=== PATIENT | male | born 1990 | race Caucasian/White ===

== ENCOUNTER 2017-04-23 18:20 | Emergency (ER) | payer SELFPAY ==
--- NOTE | 2017-04-23 18:29 | Emergency Department Report ---
Chief Complaint: Fever Stated Complaint: FEVER/BODY PAIN Time Seen by Provider: 04/23/17 18:26 - HPI History of Present Illness: PT c/o body aches since Saturday night. PT states he checked his temperature on Saturday due to chills and he had fever. PT c/o sore throat x 2-3 hours - ROS Review of Systems: + fever + sore throat - Exam Physical Exam: pt is febrile in triage pt looks non toxic no exudate noted on tonsils MSE screening note: Focused history and physical exam performed. Due to findings the following was ordered: labs, medication ED Disposition for MSE Condition: Stable
[2017-04-23] MEDS ORDERED: TYLENOL PO ONE (18:30)
[2017-04-23 19:05] LABS: Alanine Aminotransferase 14 units/L (7-56); Albumin 4.7 g/dL (3.9-5); Albumin/Globulin Ratio 1.5 %; Alkaline Phosphatase 47 units/L (35-129); Anion Gap 26 mmol/L; BUN/Creatinine Ratio 9.09; Blood Urea Nitrogen 10 mg/dL (9-20); Calcium 9.3 mg/dL (8.4-10.2); Carbon Dioxide 20 mmol/L (22-30); Chloride 95.8 mmol/L (98-107); Glucose 100 mg/dL (75-100); Potassium 3.9 mmol/L (3.6-5.0); Sodium 138 mmol/L (137-145); Total Protein 7.9 g/dL (6.3-8.2)
[2017-04-23 19:15] LABS: Red Blood Count 4.86 M/mm3 (3.65-5.03); White Blood Count 3.9 K/mm3 (4.5-11.0)
[2017-04-23 19:16] LABS: Hematocrit 46.2 % (35.5-45.6); Hemoglobin 15.6 gm/dl (11.8-15.2); Mean Corpuscular HGB Conc 34 % (32-34); Mean Corpuscular Hemoglobin 32 pg (28-32); Mean Corpuscular Volume 95 fl (84-94); Mean Platelet Volume 8.9 fl (6-12); Platelet Count 138 K/mm3 (140-440); Red Cell Distribution Width 13.6 % (13.2-15.2)
[2017-04-23 19:45] LABS: Bilirubin,Urine NEG (Negative); Blood,Urine NEG (Negative); Ketones,Urine NEG (Negative); Leukocyte Esterase,Urine NEG (Negative); Mucus,Urine FEW /HPF; Nitrite,Urine NEG (Negative)
[2017-04-23] MEDS ORDERED: MOTRIN PO ONE (21:31)
--- NOTE | 2017-04-23 21:38 | Emergency Department Report ---
ED Fever HPI - General Chief Complaint: Fever Stated Complaint: FEVER/BODY PAIN Time Seen by Provider: 04/23/17 18:26 - History of Present Illness Initial Comments: 26-year-old male past medical history none presents with complaint of approximately 4 days of body aches, fever, sore throat. Patient denies cough and any rash denies any recent travel. States one of his children may have been sick within the last week. Patient is speaking in full sentences denies any dysuria denies any abdominal pain denies any chest pain. States that he had been taking some Tylenol with minimal relief of his fever. Dates that he noticed a sore throat today but is slightly worse with swallowing solids. Patient has no audible stridor or wheezing or any signs of respiratory distress. Timing/Duration: other (4 days) Fever Severity/Quality: greater than 100.5 F Fever Therapy OWNER/PHOTOGRAPHER: Tylenol Associated Symptoms: muscle aches, sore throat ED Review of Systems ROS: Stated complaint: FEVER/BODY PAIN Other details as noted in HPI Constitutional: fever, malaise. denies: chills Eyes: denies: eye pain, eye discharge, vision change ENT: throat pain. denies: ear pain Respiratory: denies: cough, shortness of breath, wheezing Cardiovascular: denies: chest pain, palpitations Endocrine: no symptoms reported Gastrointestinal: denies: abdominal pain, nausea, diarrhea Genitourinary: denies: urgency, dysuria Musculoskeletal: denies: back pain, joint swelling, arthralgia Skin: denies: rash, lesions Neurological: denies: headache, weakness, paresthesias Psychiatric: denies: anxiety, depression Hematological/Lymphatic: denies: easy bleeding, easy bruising ED Past Medical Hx - Past Medical History Previous Medical History?: No - Surgical History Past Surgical History?: No - Social History Smoking Status: Former Smoker Substance Use Type: Alcohol - Medications Home Medications: Home Medications Medication Instructions Recorded Confirmed Last Taken Type Amoxicillin/K Clav Tab [Augmentin 1 tab PO Q12HR #14 tab 04/23/17 Unknown Rx 875 mg] Benzocaine/Menthol [Cepacol Sore 1 each MM Q4H PRN #1 box 04/23/17 Unknown Rx Throat Lozenge] Ibuprofen [Motrin] 800 mg PO Q8HR PRN #30 tablet 04/23/17 Unknown Rx ED Physical Exam - General Limitations: No Limitations General appearance: alert, in no apparent distress - Head Head exam: Present: atraumatic, normocephalic - Eye Eye exam: Present: normal appearance, PERRL, EOMI - ENT ENT exam: Present: mucous membranes moist - Expanded ENT Exam Expanded Mouth exam: Present: normal external inspection Teeth exam: Present: normal inspection Throat exam: Positive: other (some uvular inflammation, uvula midline, no peritonsillar abscess, no significant exudates) - Neck Neck exam: Present: normal inspection, full ROM, lymphadenopathy (mild anterior adenopathy, cervical) - Respiratory Respiratory exam: Present: normal lung sounds bilaterally. Absent: respiratory distress - Cardiovascular Cardiovascular Exam: Present: regular rate, normal rhythm. Absent: systolic murmur, diastolic murmur, rubs, gallop - GI/Abdominal GI/Abdominal exam: Present: soft, normal bowel sounds - Rectal Rectal exam: Present: deferred - Extremities Exam Extremities exam: Present: normal inspection - Back Exam Back exam: Present: normal inspection - Neurological Exam Neurological exam: Present: alert, oriented X3 - Psychiatric Psychiatric exam: Present: normal affect, normal mood - Skin Skin exam: Present: warm, dry, intact, normal color. Absent: rash ED Course Vital Signs 04/23/17 04/23/17 18:27 21:37 Temperature 101.7 F H Pulse Rate 109 H Respiratory 16 18 Rate Blood Pressure 135/82 O2 Sat by Pulse 99 Oximetry ED Medical Decision Making - Lab Data Result diagrams: 04/23/17 18:37 04/23/17 18:37 - Medical Decision Making A/P: Uvulitis, strep throat infection 1-Augmentin 875 twice a day, Motrin 800 when necessary, throat lozenges 2-follow-up with primary care 3-I advised patient to return to the ED if his fevers or chills worse and is has difficulty swallowing liquids or if he has persistent nausea and vomiting Critical care attestation.: If time is entered above; I have spent that time in minutes in the direct care of this critically ill patient, excluding procedure time. ED Disposition Clinical Impression: Uvulitis, Strep throat Disposition: DC-01 TO HOME OR SELFCARE Is pt being admited?: No Does the pt Need Aspirin: No Condition: Stable Instructions: Strep Throat (ED) Prescriptions: Amoxicillin/K Clav Tab [Augmentin 875 mg] 1 tab PO Q12HR #14 tab Benzocaine/Menthol [Cepacol Sore Throat Lozenge] 1 each MM Q4H PRN #1 box PRN Reason: Sore Throat Ibuprofen [Motrin] 800 mg PO Q8HR PRN #30 tablet PRN Reason: Sore Throat Referrals: [facility] [Outside] - 3-5 Days [facility] [Outside] - 3-5 Days Forms: Accompanied Note, Work/School Release Form(ED) Time of Disposition: 22:49
[2017-04-23 22:42] LABS: Basophils % (Manual) 0 % (0.0-1.8); Blastocytes % (Manual) 0 %; Eosinophils % (Manual) 0 % (0.0-4.3)
[2017-04-23 22:43] LABS: Diff Status Complete; Platelet Estimate Consistent w Auto; RBC Morphology Normal
[2017-04-23 23:04] VITALS: BP 110/74
--- NOTE | 2017-04-23 23:09 | XRay Report ---
FINAL REPORT EXAM: XR CHEST ROUTINE 2V HISTORY: fever worsening rhonchi RL lung field TECHNIQUE: PA and lateral views of the chest PRIORS: None. FINDINGS: Lines, tubes, and devices: N/A Lungs and pleura: Trachea is normal in position. Lungs are clear of infiltrate, pleural effusion, vascular congestion, or pneumothorax. Cardiomediastinal silhouette: Cardiac and mediastinal silhouettes are unremarkable. Other: Bony structures are intact. IMPRESSION: No acute cardiopulmonary process seen.
== END 2017-04-23 23:03 | disposition home or self-care (01) ==
LOC: ED 18:20
DX: K12.2 Cellulitis and abscess of mouth (principal); J02.0 Streptococcal pharyngitis; Z87.891 Personal history of nicotine dependence
CPT/HCPCS: 36415; 71020; 80053; 81001; 82550; 85007; 85025; 87430; 99284